=== PATIENT | female | born 1970 | race Caucasian/White ===

== ENCOUNTER → 2017-05-30 | Outpatient (CLI) | payer OTHER ==
--- NOTE | 2017-05-30 16:13 | RADIOLOGY REPORT (SQ) ---
EXAM DESCRIPTION: SACROILIAC JOINTS COMPLETED DATE/TIME: 05/30/2017 2:44 pm REASON FOR STUDY: SACROILIITIS M46.1 SACROILIITIS, NOT ELSEWHERE CLASSIFIED COMPARISON: None. NUMBER OF VIEWS: Three views. TECHNIQUE: AP and oblique views of the sacroiliac joints. LIMITATIONS: None. FINDINGS: MINERALIZATION: Normal. BONES: No acute fracture or dislocation. No worrisome bone lesions. No significant osteophytes. JOINTS: No ankylosis or erosions. Degenerative appearing sclerosis with slight narrowing of the left SI joint relative to the right. Hip joint spaces are incompletely assessed but look symmetric and m aintained. SOFT TISSUES: No soft tissue swelling. No radio-opaque foreign body. OTHER: No other significant finding. 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 No evidence of ankylosis or aggressive erosions. TECHNICAL DOCUMENTATION: JOB ID: [id number] [employer]- All Rights Reserved Reading location - IP/workstation name: [email or web address]
== END ==
LOC: RAD 14:07
PROVIDERS: ATTEND Pain Medicine Pain Medicine
DX: M46.1 Sacroiliitis, not elsewhere classified (principal)
CPT/HCPCS: 72200

== ENCOUNTER 2017-08-12 17:44 | Emergency (ER) | payer OTHER ==
[2017-08-12] MEDS ORDERED: ONDANSETRON HCL INJ/PF 4 MG/2 ML SDV IV ONE (17:53)
[2017-08-12] MEDS ORDERED: FENTANYL CITRATE INJ/PF 100 MCG/2 ML AMPUL IV ONE (17:53)
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
[2017-08-12] MEDS ORDERED: METOCLOPRAMIDE HCL INJ/PF 10 MG/2 ML SDV IV ONE (17:58)
[2017-08-12] MEDS ORDERED: MORPHINE SULFATE IR 15 MG TABLET PO ONE (18:52)
[2017-08-12] MEDS ORDERED: ACETAMINOPHEN 325 MG TABLET PO ONE (18:52)
[2017-08-12] MEDS ORDERED: NAPROXEN 250 MG TABLET PO ONE (18:52)
[2017-08-12] MEDS ORDERED: HYDROCODONE/ACETAMINOPHEN 5-325 MG (6 TAB/ER DISP) PO PRN (18:56)
[2017-08-12] MEDS ORDERED: SILVER SULFADIAZINE 1% CREAM 50 GM TP ONE (18:57)
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
[2017-08-12] MEDS ORDERED: SILVER SULFADIAZINE 1% CREAM 50 GM ONE (19:13)
[2017-08-12 19:33] VITALS: BP 133/80
== END 2017-08-12 19:34 | disposition home or self-care (01) ==
LOC: ER 17:44
DX: T23.201A Burn of second degree of right hand, unspecified site, initial encounter (principal); X13.1XXA Other contact with steam and other hot vapors, initial encounter
CPT/HCPCS: 99283; 96374; 96375; J3010; J2765; J3490

== ENCOUNTER → 2017-08-21 | Outpatient (CLI) | payer OTHER ==
[2017-08-21 11:15] LABS: FREE T3 3.38 pg/mL (2.77-5.27)
[2017-08-21 11:29] LABS: THYROID STIMULATING HORMONE 2.92 uIU/mL (0.47-4.68)
== END ==
LOC: OD 10:04
PROVIDERS: ATTEND Internal Medicine Endocrinology, Diabetes & Metabolism
DX: E04.1 Nontoxic single thyroid nodule (principal); E03.9 Hypothyroidism, unspecified; R53.83 Other fatigue; R63.5 Abnormal weight gain
CPT/HCPCS: 36415; 84439; 84443; 84481

== ENCOUNTER → 2019-06-23 | Outpatient (CLI) | payer OTHER ==
[2019-06-23 14:23] LABS: HEMATOCRIT 40.6 % (36.0-47.0); HEMOGLOBIN 14.5 g/dL (12.0-15.5); MEAN CORPUSCULAR HEMOGLOBIN 32.2 pg (27.0-33.4); MEAN CORPUSCULAR HGB CONC 35.7 g/dL (32.0-36.0); MEAN CORPUSCULAR VOLUME 90 fl (80-97); PLATELET COUNT 245 10^3/uL (150-450); RED BLOOD COUNT 4.49 10^6/uL (3.72-5.28); RED CELL DISTRIBUTION WIDTH 12.7 % (11.5-14.0); WHITE BLOOD COUNT 7.7 10^3/uL (4.0-10.5)
[2019-06-23 14:52] LABS: FREE T4 (FREE THYROXINE) 1.67 ng/dL (0.78-2.19)
[2019-06-23 15:06] LABS: THYROID STIMULATING HORMONE 2.46 uIU/mL (0.47-4.68)
== END ==
LOC: OD 12:14
PROVIDERS: ATTEND Family Medicine
DX: R53.82 Chronic fatigue, unspecified (principal)
CPT/HCPCS: 36415; 82607; 84439; 84443; 85027

== ENCOUNTER → 2019-10-20 | Outpatient (CLI) | payer OTHER | LOC: OD 11:55 | PROVIDERS: ATTEND Family Medicine | DX: Z91.018 Allergy to other foods (principal) | CPT/HCPCS: 36415; 83516 ==

== ENCOUNTER → 2020-02-10 | Outpatient (CLI) | payer OTHER ==
[~2020-02-10] MED LIST: COVID-19 VACCINE (PFIZER)/PF 30 MCG/0.3 ML VIAL IM ONE; EPINEPHRINE INJ/PF 1 MG/1 ML AMPULE IM PRN
== END ==
LOC: EMPHEALTH 14:18
PROVIDERS: ATTEND Internal Medicine
DX: Z23 Encounter for immunization (principal)
CPT/HCPCS: 91300

== ENCOUNTER → 2020-03-05 | Outpatient (CLI) | payer OTHER | LOC: EMPHEALTH 07:24 | PROVIDERS: ATTEND Internal Medicine | DX: Z23 Encounter for immunization (principal) | CPT/HCPCS: 91300 ==